=== PATIENT | female | born 1935 | race Caucasian/White ===

== ENCOUNTER 2017-02-10 13:44 | Emergency (ER) | payer BC ==
[2017-02-10 12:22] LABS: BASOPHILS 0.2 %; BASOPHILS ABSOLUTE 0.01 10/3/uL (0.0-0.16); EOSINOPHILS ABSOLUTE 0.11 10/3/uL (0.0-0.53); ER CBC TAT 0 Hrs 03 Mins; HEMATOCRIT 27.4 % (36.0-48.0); HEMOGLOBIN 8.6 g/dL (12.0-16.0); IMMATURE GRANULOCYTES 0.2 %; IMMATURE GRANULOCYTES ABSOLUTE 0.01 10/3/uL (0.0-0.11); LYMPHOCYTES 21.7 %; LYMPHOCYTES ABSOLUTE 1.19 10/3/uL (0.67-4.30); MEAN CORPUS HGB CONC 31.4 g/dL (32.0-36.0); MEAN CORPUSCULAR HEMOGLOB 27.8 pg (26.0-34.0); MEAN CORPUSCULAR VOLUME 88.7 fL (80-100); MEAN PLATELET VOLUME 9.2 fL (9.2-13.0); MONOCYTES 9.7 %; MONOCYTES ABSOLUTE 0.53 10/3/uL (0.21-1.20); NEUTROPHILS 66.2 %; NEUTROPHILS ABSOLUTE 3.63 10/3/uL (2.02-8.40); PLATELET COUNT 178 10/3/uL (150-400); RBC DISTRIBUTION WIDTH 15.3 % (12.0-16.0); RED CELL COUNT 3.09 10/6/uL (4.0-5.6); WHITE BLOOD CELLS 5.5 10/3/uL (4.5-10.5)
[2017-02-10 12:23] LABS: MANUAL DIFF NO %
[2017-02-10 12:29] LABS: INTERNATIONAL NORMAL RATI 1.5 UNITS (-); PARTIAL THROMBO TIME 34.3 SEC (22.5-37.2); PROTIME (NOT ORD) 17.9 SEC (12.0-14.5)
[2017-02-10 12:42] LABS: BUN (BLOOD UREA NITROGEN) 40 MG/DL (6-23); CALCIUM, SERUM 8.9 MG/DL (8.5-10.4); CHEST PAIN PROFILE TAT 0 Hrs 23 Mins; CHLORIDE, SERUM 108 MMOL/L (96-112); CO2 (CARBON DIOXIDE) 30 MMOL/L (24-34); CREATININE 1.74 MG/DL (0.55-1.02); GFR AFRICAN AMERICAN 32 ML/MIN (>=60); GFR NON AFRICAN AMERICAN 27 ML/MIN (>=60); GLUCOSE, SERUM 102 MG/DL (60-99); SODIUM, SERUM 143 MMOL/L (135-148); TROPONIN I <0.02 NG/ML (<0.05)
[~2017-02-10 13:44] MED LIST: AMARYL4 PO; AVAP150 PO; CARDU2 PO; DEMA20 PO; ELIQUIS 2.5 MG2.5 MG PO; LOP25 PO; NEUR300 PO; NEXIUM40 MG PO; TRADJENTA5 MG PO; ULTRAM50 PO; Z300 PO
[2017-06-03] MEDS ORDERED: IRON OTC PO (14:35)
== END 2017-02-10 15:00 | disposition home or self-care (01) ==
LOC: ER 13:44
PROVIDERS: Emergency Medicine
DX: R60.0 Localized edema (principal); D64.9 Anemia, unspecified; I10 Essential (primary) hypertension; E11.9 Type 2 diabetes mellitus without complications; Z85.828 Personal history of other malignant neoplasm of skin; Z88.2 Allergy status to sulfonamides; Z79.899 Other long term (current) drug therapy
CPT/HCPCS: 71010; 73600-LT; 73610-RT; 80048; 83735; 84484; 85025; 85610; 85730; 93005; 99284